=== PATIENT | female | born 1955 | race Caucasian/White ===

== ENCOUNTER 2017-02-22 08:43 | Outpatient (CLI) | payer OTHER ==
[2017-02-22 09:41] LABS: Anion Gap 16 mmol/L (10-20); BUN (Urea Nitrogen) 16 mg/dL (9.8-20.1); Calc. Creatinine Clearance 0 mL/min (70-130); Calcium 11.9 mg/dL (7.8-10.44); Carbon Dioxide 27 mmol/L (22-29); Chloride 104 mmol/L (98-107); Estimated GFR-MDRD 61; Glucose 94 mg/dL (70-105); Potassium 5.4 mmol/L (3.5-5.1); Sodium 142 mmol/L (136-145)
== END 2017-02-22 08:44 | disposition home or self-care (01) ==
LOC: BURLAB 08:43
PROVIDERS: ATTEND Internal Medicine Cardiovascular Disease
DX: I25.10 Atherosclerotic heart disease of native coronary artery without angina pectoris (principal)
CPT/HCPCS: 36415; 80048

== ENCOUNTER 2018-10-26 08:50 | Outpatient (CLI) | payer OTHER ==
--- NOTE | 2018-10-26 12:59 | ULT ---
ABDOMINAL ULTRASOUND: Date: 10-26-18 Comparison: 2008 FINDINGS: As before, the liver was found to be quite large, measuring nearly 20 cm in oblique sagittal length. While it is not seen well, no focal hepatic lesions or dilated ducts were apparent. The spleen is not enlarged. The pancreas is partially obscured by gas, but the visualized areas were normal. The gallb ladder has been surgically removed. The common bile duct is 6 mm in width, which is normal. The right kidney is 12.7 cm long and may have a duplicated collecting system. There was no mass or hydronephro sis. The left kidney is 11.5 cm and appears normal. The aorta and inferior vena cava were unremarkabl e. IMPRESSION: Marked hepatic enlargement. No focal hepatic lesions. Portal venous flow was appropriately towards th e liver. POS: HOME
== END 2018-10-26 08:51 | disposition home or self-care (01) ==
LOC: BURULT 08:50
PROVIDERS: ATTEND Family Medicine
DX: R10.10 Upper abdominal pain, unspecified (principal); R16.0 Hepatomegaly, not elsewhere classified
CPT/HCPCS: 76700